=== PATIENT | male | born 1950 | race Caucasian/White ===

== ENCOUNTER 2016-11-27 07:10 | Emergency (ER) | payer BC, OTHER ==
[~2016-11-27] VITALS: Ht 162.6 cm; Wt 52.7 kg
[2016-11-27 07:13] VITALS: TEMP 36.4; Ht 162.6 cm; Wt 52.7 kg
--- NOTE | 2016-11-27 07:51 | DIAGNOSTIC IMAGING REPORT ---
LEFT HAND MIN 3 VIEWS ROUTINE CLINICAL HISTORY: Left hand pain. Trauma. COMPARISON: None. DISCUSSION: No acute fractures are visualized. There are advanced osteoarthritic changes the level the first carpal metacarpal joint. There is joint space narrowing at the level the second metacarpal phalangeal joint. There are mild osteoarthritic changes involving the proximal distal interphalangeal joints. The bones are mildly osteopenic. IMPRESSION: 1. No acute fractures or dislocations identified 2. Advanced osteoarthritic changes at the level of the first carpometacarpal joint Electronically signed by: Fracisco Castillo M.D. 11/27/2016 7:49 AM Dictated Date/Time: 11/27/2016 7:48 AM
--- NOTE | 2016-11-27 08:03 | EMERGENCY ROOM VISIT NOTE ---
History First contact with patient: 07:28 Chief Complaint: HAND PAIN/INJURY Stated Complaint: FELL AND HURT LEFT HAND History of Present Illness The patient is a 66 year old male who presents to the Emergency Room with complaints of left hand pain after tripping and falling this morning while walking down his sidewalk. The patient reports tripping on a step and falling backward, landing on his left hand that was behind his back when he attempted to catch his fall. The patient denies any pain extending into the forearm or elbow. He denies any paresthesias or numbness of the left hand. He denies any prior history of left hand fractures, and rates his discomfort a 6 out of 10 on my exam. The patient is [id number]. Review of Systems 10 system review was performed and was negative except for pertinent positives and negatives as indicated in history of present illness Past Medical/Surgical History Medical Problems: (1) Tobacco Use Disorder Surgical Problems: (1) No history of previous surgery Family History No significant family history Social History Smoking Status: Current Every Day Smoker Alcohol Use: none Marital Status: Occupation Status: employed Current/Historical Medications No Active Prescriptions or Reported Meds Allergies Coded Allergies: No Known Allergies (Unverified , 11/27/16) Physical Exam Vital Signs Date Time Temp Pulse Resp B/P Pulse Ox O2 Delivery O2 Flow Rate FiO2 11/27/16 07:13 36.4 67 17 140/86 97 Room Air Physical Exam CONSTITUTIONAL: Healthy and well nourished. Alert and oriented X 3 with positive affect. She does not appear in any acute distress. HEENT: Normocephalic, atraumatic. Pupils equal, round and reactive. NECK: Full active range of motion without discomfort. RESPIRATORY: Clear to auscultation bilaterally with no wheezing, crackles, rhonchi or stridor. CARDIOVASCULAR: Regular rate and rhythm with no murmurs, rubs or gallops. MUSCULOSKELETAL: Examination shows notable edema of the left hand. He has tenderness to palpation through the base of the thumb and first metacarpal region. Negative anatomic snuffbox tenderness. No significant tenderness to palpation over the wrist or ulnar aspect of the hand. Capillary refill is less than 2 seconds. The patient is able to flex and extend the fingers without significant discomfort. INTEGUMENTARY: No rash or other significant dermatologic conditions noted. NEUROLOGIC: Left hand and fingers are sensory intact. Medical Decision & Procedures ER Provider Diagnostic Interpretation: My interpretation of left hand x-rays does not show any obvious fractures or dislocations. Significant degenerative changes are noted. Radiologist report is as follows: LEFT HAND MIN 3 VIEWS ROUTINE CLINICAL HISTORY: Left hand pain. Trauma. COMPARISON: None. DISCUSSION: No acute fractures are visualized. There are advanced osteoarthritic changes the level the first carpal metacarpal joint. There is joint space narrowing at the level the second metacarpal phalangeal joint. There are mild osteoarthritic changes involving the proximal distal interphalangeal joints. The bones are mildly osteopenic. IMPRESSION: 1. No acute fractures or dislocations identified 2. Advanced osteoarthritic changes at the level of the first carpometacarpal joint ED Course Patient history and physical exam were performed. Nurse's notes were reviewed. The patient refused any analgesics. X-rays of the left hand were normal except for degenerative changes. An ice pack was applied. The patient was encouraged to perform range of motion exercises to prevent stiffness. He was encouraged to alternate ibuprofen and Tylenol as needed for pain. He was instructed to follow-up with orthopedics if symptoms are not improving within the next 5-7 days. The patient was happy with plan of care, voice understanding of all discharge instructions, and rated his pain a 4 out of 10 at the time of discharge. The patient was also seen and examined by Dr. Parker, ED attending physician, who agrees with workup and plan of care. Medical Decision Impression Primary Impression: Contusion of left hand Additional Impression: Fall from slip, trip, or stumble Departure Information Prescriptions No Active Prescriptions or Reported Meds Referrals No Doctor, Assigned (PCP) Patient Instructions My [facility] Problem Qualifiers Primary Impression: Contusion of left hand Encounter type: initial encounter Qualified Codes: S60.222A - Contusion of left hand, initial encounter Additional Impression: Fall from slip, trip, or stumble Encounter type: initial encounter Qualified Codes: W01.0XXA - Fall on same level from slipping, tripping and stumbling without subsequent striking against object, initial encounter
[2016-11-27 08:07] VITALS: BP 123/77; PULSE 77; O2SAT 99
--- NOTE | 2016-11-27 08:15 | EMERGENCY ROOM VISIT NOTE ---
ED Visit Note First contact with patient: 07:28 I saw this patient in conjunction with Azael Blair PA-C. I agree with his decision-making and treatment plan.
== END 2016-11-27 08:08 | disposition home or self-care (01) ==
LOC: C.EDB 07:10
DX: S60.222A Contusion of left hand, initial encounter (principal); M19.042 Primary osteoarthritis, left hand; F17.200 Nicotine dependence, unspecified, uncomplicated; W01.0XXA Fall on same level from slipping, tripping and stumbling without subsequent striking against object, initial encounter; Y93.01 Activity, walking, marching and hiking; Y92.480 Sidewalk as the place of occurrence of the external cause; Y99.8 Other external cause status

== ENCOUNTER 2017-05-01 08:34 | Emergency (ER) | payer OTHER ==
[~2017-05-01] VITALS: Ht 165.1 cm; Wt 48.2 kg
[2017-05-01 08:39] VITALS: TEMP 36.8; Ht 165.1 cm; Wt 48.2 kg
[2017-05-01] MEDS ORDERED: SODIUM CHLORIDE 0.9% 1000ML 1,000 ML IV STA (09:01)
[2017-05-01] MEDS ORDERED: MECLIZINE HCL 25 MG TAB PO STA (09:01)
[2017-05-01] MEDS ORDERED: SODIUM CHLORIDE 0.9% 1000ML 1,000 ML IV ONE (09:01)
--- NOTE | 2017-05-01 09:04 | EMERGENCY ROOM VISIT NOTE ---
History Report prepared by Kirill: Claritza Bradford Under the Supervision of: Dr. Azael Maradiaga M.D. First contact with patient: 08:55 Chief Complaint: DIZZY Stated Complaint: DIZZY/NAUSEA Nursing Triage Summary: Pt arrives BLS from work Pt reports he was sitting in his car, getting ready to go in to work when he became dizzy, nauseous, and weak. Pt went in to work and staff report pt was very pale On arrival, pt unable to keep eyes open to have conversation, but does awaken to verbal stimuli. Pt reports he feels tired. Pt's speech slurred but patient reports "this is normal for me" History of Present Illness The patient is a 67 year old male who presents to the Emergency Room with complaints of constant dizziness beginning this morning. The patient states that he woke up this morning and was feeling dizzy, nauseous, and weak. He reports that it feels like the room is spinning and he may pass out. He notes that movement worsens his dizziness and rest improves it. The patient denies any chest pain, shortness of breath, numbness, new slurred speech, ear pain, and ear ringing. He notes that he is not on any blood thinners and does not have a history of thyroid problems. He reports that he has a history of vertigo. Source of History: patient Onset: this morning Position: other (global) Quality: other (room spinning) Timing: constant Modifying Factors (Worsening): movement Modifying Factors (Relieving): rest Associated Symptoms: + nausea, + weakness, No chest pain, No SOB, No numbness Note: The patient denies any new slurred speech, ear pain, and ear ringing Review of Systems See HPI for pertinent positives & negatives. A total of 10 systems reviewed and were otherwise negative. Past Medical & Surgical Medical Problems: (1) Tobacco Use Disorder Surgical Problems: (1) No history of previous surgery Old medical records were reviewed. Nurse's notes were reviewed and I agree with. Family History No significant family history Social History Smoking Status: Current Every Day Smoker Alcohol Use: none Marital Status: Occupation Status: employed Current/Historical Medications Scheduled PRN Meclizine Hcl (Meclizine Hcl), 1 TAB PO TID PRN for Dizziness or Vertigo Allergies Coded Allergies: No Known Allergies (Unverified , 11/27/16) Physical Exam Vital Signs Date Time Temp Pulse Resp B/P (MAP) Pulse Ox O2 Delivery O2 Flow Rate FiO2 05/01/17 12:05 62 17 103/61 96 05/01/17 11:57 62 05/01/17 11:34 56 17 103/61 96 05/01/17 09:49 58 17 107/65 98 Room Air 05/01/17 08:39 36.8 57 14 131/66 93 Room Air 05/01/17 08:38 57 Physical Exam General: Well developed well nourished in no acute distress, breathing comfortably on room air. Normal speech. Non ill appearing older male. HEENT: Normal cephalic atraumatic. Pupils are equal round and reactive to light. Extraocular movements are intact. No nystagmus. Oropharynx is pink with moist mucous membranes. No swelling of the mouth lips or tongue. Neck: Supple with a midline trachea. No meningeal signs or stiffness, no JVD or bruits. No Stridor. Chest: Clear to auscultation bilaterally. No wheezes or rhonchi. No increased work of breathing. Heart: regular rate and rhythm. Abdomen: Soft nontender, nondistended without rebound guarding or rigidity. Extremities: No cyanosis clubbing or edema. No calf tenderness or assymetry Spine/Back. Non tender to palpation. No CVA tenderness Skin: Good turgor without rashes. Neurologic exam: Cranial nerves two through 12 are intact. Motor and sensation are intact and symmetrical throughout. Finger to nose intact, no trauma. No tremor. No pronator drift. Medical Decision & Procedures ER Provider Diagnostic Interpretation: Radiology results as stated below per my review and radiologist interpretation: CT HEAD WITHOUT CONTRAST (CT) FINDINGS: No intra or extra-axial mass lesions are visualized. There is no CT evidence of acute cortical infarction. There is no evidence of midline shift. There is no acute hemorrhage. No calvarial fractures are visualized. There is cerebellar atrophy. There is no evidence of pathologic ventricular dilatation. There is complete opacification of the right maxillary sinus. There is mild mucosal disease within the ethmoid sinuses. There is opacification of the right frontal sinus. IMPRESSION: 1. No acute intracranial findings 2. Cerebellar atrophy 3. Paranasal sinus disease Electronically signed by: Fracisco Castillo M.D. 05/01/2017 9:27 AM Dictated Date/Time: 05/01/2017 9:25 AM CHEST ONE VIEW PORTABLE FINDINGS: The lungs are clear. Cardiac silhouette is normal in size. No pleural effusions. No pneumothorax. Nodular density within the left lateral lung base may represent an overlapping nipple shadow or old, healed rib fracture. IMPRESSION: No acute process. Electronically signed by: Erick Louis M.D. 05/01/2017 9:49 AM Dictated Date/Time: 05/01/2017 9:48 AM Laboratory Results 05/01/17 08:50 Red Blood Count 4.31, Mean Corpuscular Volume 93.5, Mean Corpuscular Hemoglobin 32.3, Mean Corpuscular Hemoglobin Concent 34.5, Mean Platelet Volume 9.8, Neutrophils (%) (Auto) 68.2, Lymphocytes (%) (Auto) 21.4, Monocytes (%) (Auto) 6.6, Eosinophils (%) (Auto) 3.0, Basophils (%) (Auto) 0.5, Neutrophils # (Auto) 5.29, Lymphocytes # (Auto) 1.66, Monocytes # (Auto) 0.51, Eosinophils # (Auto) 0.23, Basophils # (Auto) 0.04 05/01/17 08:50 Test 05/01/17 08:50 05/01/17 09:05 White Blood Count 7.75 K/uL (4.8-10.8) Red Blood Count 4.31 M/uL (4.7-6.1) Hemoglobin 13.9 g/dL (14.0-18.0) Hematocrit 40.3 % (42-52) Mean Corpuscular Volume 93.5 fL (80-100) Mean Corpuscular Hemoglobin 32.3 pg (25-34) Mean Corpuscular Hemoglobin Concent 34.5 g/dl (32-36) Platelet Count 189 K/uL (130-400) Mean Platelet Volume 9.8 fL (7.4-10.4) Neutrophils (%) (Auto) 68.2 % Lymphocytes (%) (Auto) 21.4 % Monocytes (%) (Auto) 6.6 % Eosinophils (%) (Auto) 3.0 % Basophils (%) (Auto) 0.5 % Neutrophils # (Auto) 5.29 K/uL (1.4-6.5) Lymphocytes # (Auto) 1.66 K/uL (1.2-3.4) Monocytes # (Auto) 0.51 K/uL (0.11-0.59) Eosinophils # (Auto) 0.23 K/uL (0-0.5) Basophils # (Auto) 0.04 K/uL (0-0.2) RDW Standard Deviation 47.2 fL (36.4-46.3) RDW Coefficient of Variation 13.7 % (11.5-14.5) Immature Granulocyte % (Auto) 0.3 % Immature Granulocyte # (Auto) 0.02 K/uL (0.00-0.02) Anion Gap 10.0 mmol/L (3-11) Est Creatinine Clear Calc Drug Dose 65.2 ml/min Estimated GFR () 110.0 Estimated GFR (Non- 94.9 BUN/Creatinine Ratio 23.5 (10-20) Calcium Level 8.6 mg/dl (8.5-10.1) Total Bilirubin 0.3 mg/dl (0.2-1) Direct Bilirubin 0.1 mg/dl (0-0.2) Aspartate Amino Transf (AST/SGOT) 14 U/L (15-37) Alanine Aminotransferase (ALT/SGPT) 18 U/L (12-78) Alkaline Phosphatase 49 U/L (45-117) Total Protein 6.7 gm/dl (6.4-8.2) Albumin 3.7 gm/dl (3.4-5.0) Lipase 120 U/L (73-393) Thyroid Stimulating Hormone (TSH) 0.753 uIu/ml (0.300-4.500) Bedside Troponin I < 0.030 ng/ml (0-0.045) Laboratory studies as stated above per my review. Medications Administered Medications (Trade) Dose Ordered Sig/Harjeet Route Start Time Stop Time Status Last Admin Dose Admin Sodium Chloride 1,000 ml @ 999 mls/hr Q1H1M STAT IV 05/01/17 09:01 05/01/17 10:01 DC 05/01/17 09:09 999 MLS/HR Sodium Chloride 1,000 ml @ 150 mls/hr Q6H40M ONCE IV 05/01/17 09:01 05/01/17 12:13 DC 05/01/17 09:47 150 MLS/HR Meclizine HCl (Antivert Tab) 25 mg NOW STAT PO 05/01/17 09:01 05/01/17 09:02 DC 05/01/17 09:09 25 MG ECG Indication: other (dizziness) Rate (beats per minute): 52 Rhythm: sinus bradycardia Findings: no acute ischemic change, no ectopy Comparison ECG Date: no prior available ED Course 0855: Past medical records reviewed. The patient was evaluated in room B11, and a complete history and physical examination were performed. 0901: Antivert Tab 25mg PO, Sodium Chloride 1000 ml @ 150 mls/hr IV, Sodium Chloride 1000 ml @ 999 mls/hr IV. 1102: I reevaluated the patient. He is resting comfortably. 1151: I reevaluated the patient and he is feeling better. 1158: Upon reevaluation, the patient is doing well. I discussed the results and treatment plan with the patient. He verbalized agreement of the treatment plan. The patient will be evaluated for further management. Medical Decision Differential diagnosis includes vertigo, CVA, arrhythmia, acute coronary syndrome, electrolyte or metabolic abnormality. Blood pressure Screening: Patient was found to have normal blood pressure on screening and does not require follow-up. Medication Reconciliation: I attest that I have personally reviewed the patient' s current medication list. This patient comes in as described above. He was placed in room B 11. He is here for treatment and evaluation of dizziness. It is worse with movement. He looks well on exam. He has a normal neurologic exam. He has normal finger to nose. He has no chest pain or shortness of breath. He was placed on quality assurance monitor chassis EKG shows no evidence to suggest acute coronary syndrome or significant arrhythmia. CAT scan of his head was unremarkable. He was given meclizine and seems to be feeling better he was able ambulate and wants to go home mostly this is a peripheral vertigo he was given a prescription for meclizine is definitely worse with movement. He will be discharged home and was encouraged to return if worsening of symptoms, numbness or weakness, chest pain, shortness of breath, any new problems or concerns. Impression Primary Impression: Vertigo Scribe Attestation The scribe's documentation has been prepared under my direction and personally reviewed by me in its entirety. I confirm that the note above accurately reflects all work, treatment, procedures, and medical decision making performed by me. Departure Information Dispostion Home / Self-Care Prescriptions Meclizine Hcl (MECLIZINE HCL) 25 Mg Tab 1 TAB PO TID Y for Dizziness or Vertigo for 3 Days, #9 TAB Prov: Azael Maradiaga M.D. 05/01/17 Referrals No Doctor, Assigned (PCP) Forms HOME CARE DOCUMENTATION FORM, IMPORTANT VISIT INFORMATION Patient Instructions My [facility] Additional Instructions Rest. Drink plenty of fluids. Be careful getting up and down. For dizziness, may use meclizine 25 mg every 8 hours if needed Meclizine may make you drowsy and do not take before drinking, driving, working Return if: Worsening symptoms, fever or chills, shortness of breath, any new problems or concerns.
[2017-05-01 09:14] LABS: BASO % 0.5 %; BASO ABS # 0.04 K/uL (0-0.2); COMPLETE YES; HEMATOCRIT 40.3 % (42-52); IG% 0.3 %; LYMPH % 21.4 %; LYMPH ABS # 1.66 K/uL (1.2-3.4); MEAN CELL VOLUME 93.5 fL (80-100); MEAN CORPUSCULAR HEMOGLOBIN 32.3 pg (25-34); MEAN CORPUSCULAR HGB CONC 34.5 g/dl (32-36); MEAN PLATELET VOLUME 9.8 fL (7.4-10.4); MONO % 6.6 %; NEUT % 68.2 %; PLATELET COUNT 189 K/uL (130-400); RED BLOOD COUNT 4.31 M/uL (4.7-6.1); WHITE BLOOD COUNT 7.75 K/uL (4.8-10.8)
[2017-05-01 09:19] LABS: BUN/CREATININE RATIO 23.5 (10-20); CALCIUM 8.6 mg/dl (8.5-10.1); CREATININE 0.75 mg/dl (0.60-1.40); POTASSIUM 3.6 mmol/L (3.5-5.1)
--- NOTE | 2017-05-01 09:28 | DIAGNOSTIC IMAGING REPORT ---
CT HEAD WITHOUT CONTRAST (CT) CLINICAL HISTORY: dizziness NAUSEA COMPARISON STUDY: No previous studies for comparison. TECHNIQUE: Axial CT of the brain is performed from the vertex to the skull base. IV contrast was not administered for this examination. CT DOSE: 614.27 mGy.cm FINDINGS: No intra or extra-axial mass lesions are visualized. There is no CT evidence of acute cortical infarction. There is no evidence of midline shift. There is no acute hemorrhage. No calvarial fractures are visualized. There is cerebellar atrophy. There is no evidence of pathologic ventricular dilatation. There is complete opacification of the right maxillary sinus. There is mild mucosal disease within the ethmoid sinuses. There is opacification of the right frontal sinus. IMPRESSION: 1. No acute intracranial findings 2. Cerebellar atrophy 3. Paranasal sinus disease Electronically signed by: Fracisco Castillo M.D. 05/01/2017 9:27 AM Dictated Date/Time: 05/01/2017 9:25 AM
[2017-05-01 09:30] LABS: THYROID STIMULATING HORMONE 0.753 uIu/ml (0.300-4.500)
--- NOTE | 2017-05-01 09:50 | DIAGNOSTIC IMAGING REPORT ---
CHEST ONE VIEW PORTABLE HISTORY: Atypical CHEST PAIN COMPARISON: Chest 11/10/2014. FINDINGS: The lungs are clear. Cardiac silhouette is normal in size. No pleural effusions. No pneumothorax. Nodular density within the left lateral lung base may represent an overlapping nipple shadow or old, healed rib fracture. IMPRESSION: No acute process. Electronically signed by: Erick Louis M.D. 05/01/2017 9:49 AM Dictated Date/Time: 05/01/2017 9:48 AM
[2017-05-01] MEDS ORDERED: MECL1TAB42 PO (11:53)
[2017-05-01 12:05] VITALS: BP 103/61; PULSE 62; O2SAT 96
== END 2017-05-01 12:10 | disposition home or self-care (01) ==
LOC: EDBD 08:34 → C.EDB 08:35
DX: R42 Dizziness and giddiness (principal); F17.210 Nicotine dependence, cigarettes, uncomplicated

== ENCOUNTER 2017-05-24 09:29 | Emergency (ER) | payer OTHER ==
[~2017-05-24] VITALS: Ht 162.6 cm; Wt 52.0 kg
[2017-05-24 09:33] VITALS: TEMP 36.3; Ht 162.6 cm; Wt 52.0 kg
[2017-05-24] MEDS ORDERED: MECLIZINE HCL 25 MG TAB PO STA (09:53)
--- NOTE | 2017-05-24 10:12 | DIAGNOSTIC IMAGING REPORT ---
CHEST ONE VIEW PORTABLE CLINICAL HISTORY: eval for pnea chest pain. Dyspnea. COMPARISON STUDY: 05/01/2017 FINDINGS: The bones soft tissues and hemidiaphragms are normal. The cardiomediastinal silhouette is normal. The lungs are clear. The pulmonary vasculature is normal. IMPRESSION: Negative chest. The above report was generated using voice recognition software. It may contain grammatical, syntax or spelling errors. Electronically signed by: Eric Bergeron M.D. 05/24/2017 10:11 AM Dictated Date/Time: 05/24/2017 10:11 AM
[2017-05-24 10:15] LABS: BASO % 0.2 %; BASO ABS # 0.02 K/uL (0-0.2); COMPLETE YES; EOS % 0.1 %; HEMATOCRIT 39.8 % (42-52); IG% 0.2 %; LYMPH % 14.2 %; LYMPH ABS # 1.15 K/uL (1.2-3.4); MEAN CELL VOLUME 91.9 fL (80-100); MEAN CORPUSCULAR HEMOGLOBIN 32.3 pg (25-34); MEAN CORPUSCULAR HGB CONC 35.2 g/dl (32-36); MEAN PLATELET VOLUME 9.5 fL (7.4-10.4); MONO % 8.3 %; PLATELET COUNT 146 K/uL (130-400); RED BLOOD COUNT 4.33 M/uL (4.7-6.1); WHITE BLOOD COUNT 8.11 K/uL (4.8-10.8)
[2017-05-24] MEDS ORDERED: AMOX875T PO (10:27)
[2017-05-24] MEDS ORDERED: SODIUM CHLORIDE 0.9% 500ML 500 ML IV STA (10:27)
[2017-05-24 10:38] LABS: BUN/CREATININE RATIO 24.5 (10-20); CREATININE 0.73 mg/dl (0.60-1.40)
[2017-05-24 10:48] LABS: THYROID STIMULATING HORMONE 0.69 uIu/ml (0.300-4.500)
[2017-05-24] MEDS ORDERED: GADAVIST IV PRN (12:30)
[2017-05-24 12:31] LABS: URINE APPEARANCE CLEAR (CLEAR); URINE BILIRUBIN NEG (NEG); URINE COLOR YELLOW; URINE EPITHELIAL CELL AUTO 0-5 /lpf (0-5); URINE NITRITE NEG (NEG); URINE PH 6.5 (4.5-7.5); UROBILINOGEN NEG (NEG)
[2017-05-24 12:34] LABS: MANUAL MICROSCOPIC REQUIRED? NO; REVIEW REQ? NO
--- NOTE | 2017-05-24 12:54 | DIAGNOSTIC IMAGING REPORT ---
MRA HEAD WITHOUT CONTRAST HISTORY: Mental status change eval for VBI TECHNIQUE: 3-D [id number] MRA of the brain was performed without contrast. COMPARISON STUDY: None. FINDINGS: Visualized intracranial internal carotid arteries, distal vertebral arteries, and basilar artery are widely patent. There is no significant stenosis, occlusion, or aneurysm seen within the bilateral ACAs, MCAs, or booth operator. IMPRESSION: No significant stenosis, occlusion, or aneurysm within the [place] of Wu. Normal vertebral basilar system The above report was generated using voice recognition software. It may contain grammatical, syntax or spelling errors. Electronically signed by: Eric Bergeron M.D. 05/24/2017 12:53 PM Dictated Date/Time: 05/24/2017 12:52 PM
--- NOTE | 2017-05-24 13:34 | DIAGNOSTIC IMAGING REPORT ---
BRAIN COMBO CLINICAL HISTORY: eval for stroke COMPARISON STUDY: No previous studies for comparison. TECHNIQUE: Utilizing a 1.5 Jada magnet and dedicated coil, multiplanar, multiecho imaging of the brain was performed pre and postcontrast administration. IV administration of 8 mL of Gadavist contrast was uneventful. FINDINGS: Diffusion images are negative for an acute ischemic insult. There is no significant postcontrast enhancement. Ventricular system is midline. Sella and parasellar regions are unremarkable. IMPRESSION: Negative study The above report was generated using voice recognition software. It may contain grammatical, syntax or spelling errors. Electronically signed by: Eric Bergeron M.D. 05/24/2017 1:33 PM Dictated Date/Time: 05/24/2017 1:30 PM
--- NOTE | 2017-05-24 13:36 | DIAGNOSTIC IMAGING REPORT ---
MRA NECK COMBO HISTORY: Mental status change eval for VBI TECHNIQUE: Nnwz-yn-[id number] and gadolinium-enhanced MRA of the neck was performed both before and after the intravenous administration of contrast. All measurements were calculated based on NASCET criteria. COMPARISON STUDY: None. FINDINGS: The aortic arch and proximal great vessels are widely patent. There is no significant stenosis, occlusion, or dissection identified within the bilateral common carotid, internal carotid, or vertebral arteries. IMPRESSION: No significant stenosis, occlusion, or dissection identified within the carotid or vertebral arteries. Normal vertebral basilar system The above report was generated using voice recognition software. It may contain grammatical, syntax or spelling errors. Electronically signed by: Eric Bergeron M.D. 05/24/2017 1:34 PM Dictated Date/Time: 05/24/2017 1:33 PM
[2017-05-24] MEDS ORDERED: MECL1TAB42 PO (13:50)
[2017-05-24 14:10] VITALS: BP 104/72; PULSE 68; O2SAT 96
--- NOTE | 2017-05-24 15:13 | EMERGENCY ROOM VISIT NOTE ---
History Report prepared by Kirill: April Cole Under the Supervision of: Dr. Girish Beasley M.D. First contact with patient: 09:39 Chief Complaint: DIZZY Stated Complaint: DIZZY Nursing Triage Summary: pt to the ED with dizziness no syncope and has pain due to falls History of Present Illness The patient is a 67 year old male who presents to the Emergency Room with complaints of persistent dizziness for the past three months. He currently rates his discomfort as an 8/10 in severity. The patient's daughter in law reports that the patient has been experiencing dizziness for the past several months. His daughter in law reports that the patient was seen at [facility] yesterday, and states that the patient was placed on Augmentin for a probable sinus infection. The patient's daughter in law states that the patient was also seen here one month ago and was given Meclizine, which has helped to alleviate his dizziness. She states that the patient has been falling due to the dizziness. The patient states that his symptoms are worse when he goes from lying flat to sitting up or standing up. The patient states that he has difficulty ambulating for the past three months. He denies ever having this dizziness prior to the past three months. The patient denies being on any medications and has no known active medical problems. He states that he does not have a PCP that he follows with. The patient reports a normal appetite. He denies any dysphasia, ringing in his hears, headache, chest pain, headache, vomiting, or diarrhea. The patient denies any numbness or weakness to one side of his body. Source of History: patient, family (daughter in law) Onset: past three months Position: other (global) Symptom Intensity: 8/10 Quality: other (dizziness) Timing: other (persistent) Modifying Factors (Worsening): other (going from sitting down to standing up ) Modifying Factors (Relieving): other (meclizine) Associated Symptoms: No headache, No chest pain, No SOB, No vomiting, No diarrhea, No weakness, No numbness Note: Associated Symptoms: difficulty ambulating, recent falls. Review of Systems See HPI for pertinent positives & negatives. A total of 10 systems reviewed and were otherwise negative. Past Medical & Surgical Medical Problems: (1) Tobacco Use Disorder Surgical Problems: (1) No history of previous surgery Family History No significant family history Social History Smoking Status: Current Every Day Smoker Alcohol Use: none Marital Status: Occupation Status: employed Current/Historical Medications Scheduled Amoxicillin & Pot Clavulanate (Augmentin 875-125 mg), 1 TAB PO BID Scheduled PRN Meclizine Hcl (Meclizine Hcl), 1 TAB PO TID PRN for Dizziness or Vertigo Allergies Coded Allergies: No Known Allergies (Unverified , 05/24/17) Physical Exam Vital Signs Date Time Temp Pulse Resp B/P (MAP) Pulse Ox O2 Delivery O2 Flow Rate FiO2 05/24/17 14:10 68 18 104/72 96 Room Air 05/24/17 13:25 66 18 102/79 97 Room Air 05/24/17 12:00 58 16 107/71 100 Room Air 05/24/17 10:48 60 05/24/17 10:13 64 18 128/82 97 05/24/17 10:09 58 106/62 62 127/77 72 99/67 05/24/17 09:33 36.3 71 22 104/68 94 Room Air Physical Exam Constitutional: Vital signs reviewed. Eyes: Pupils are equal round reactive to light. Conjunctiva are noninjected. ENT: Pharynx is clear without erythema or exudate. Mucous membranes are moist. Neck supple without meningeal signs. Respiratory: Clear to auscultation bilaterally. Breath sounds are equal bilaterally. Cardiovascular: Regular rate and rhythm. No rubs or gallops. GI: Soft, nondistended and nontender. Bowel sounds are present. Musculoskeletal: No peripheral edema. No lower extremity tenderness. Integumentary: No cyanosis. Neurological: The patient is awake and alert. Cranial nerves II-XII are intact. Motor is 5 out of 5 all extremities. Sensation is intact to light touch all extremities. Normal speech. No pronator drift. No limb ataxia. No dysdiadochokinesis, negative test of skew, right lateral nystagmus, positive head impulse testing, negative Romberg sign, wide based gait. Psychiatric: Normal affect. Medical Decision & Procedures ER Provider Diagnostic Interpretation: Radiology results as stated below per my review and the radiologist's interpretation: CHEST ONE VIEW PORTABLE CLINICAL HISTORY: eval for pnea chest pain. Dyspnea. COMPARISON STUDY: 05/01/2017 FINDINGS: The bones soft tissues and hemidiaphragms are normal. The cardiomediastinal silhouette is normal. The lungs are clear. The pulmonary vasculature is normal. IMPRESSION: Negative chest. The above report was generated using voice recognition software. It may contain grammatical, syntax or spelling errors. Electronically signed by: Eric Bergeron M.D. 05/24/2017 10:11 AM Dictated Date/Time: 05/24/2017 10:11 AM MRA NECK COMBO HISTORY: Mental status change eval for VBI TECHNIQUE: [id number] and gadolinium-enhanced MRA of the neck was performed both before and after the intravenous administration of contrast. All measurements were calculated based on NASCET criteria. COMPARISON STUDY: None. FINDINGS: The aortic arch and proximal great vessels are widely patent. There is no significant stenosis, occlusion, or dissection identified within the bilateral common carotid, internal carotid, or vertebral arteries. IMPRESSION: No significant stenosis, occlusion, or dissection identified within the carotid or vertebral arteries. Normal vertebral basilar system The above report was generated using voice recognition software. It may contain grammatical, syntax or spelling errors. Electronically signed by: Eric Bergeron M.D. 05/24/2017 1:34 PM Dictated Date/Time: 05/24/2017 1:33 PM MRA HEAD WITHOUT CONTRAST HISTORY: Mental status change eval for VBI TECHNIQUE: 3-D [id number] MRA of the brain was performed without contrast. COMPARISON STUDY: None. FINDINGS: Visualized intracranial internal carotid arteries, distal vertebral arteries, and basilar artery are widely patent. There is no significant stenosis, occlusion, or aneurysm seen within the bilateral ACAs, MCAs, or restaurant general manager. IMPRESSION: No significant stenosis, occlusion, or aneurysm within the [place]. Normal vertebral basilar system The above report was generated using voice recognition software. It may contain grammatical, syntax or spelling errors. Electronically signed by: Eric Bergeron M.D. 05/24/2017 12:53 PM Dictated Date/Time: 05/24/2017 12:52 PM BRAIN COMBO CLINICAL HISTORY: eval for stroke COMPARISON STUDY: No previous studies for comparison. TECHNIQUE: Utilizing a 1.5 Jada magnet and dedicated coil, multiplanar, multiecho imaging of the brain was performed pre and postcontrast administration. IV administration of 8 mL of Gadavist contrast was uneventful. FINDINGS: Diffusion images are negative for an acute ischemic insult. There is no significant postcontrast enhancement. Ventricular system is midline. Sella and parasellar regions are unremarkable. IMPRESSION: Negative study The above report was generated using voice recognition software. It may contain grammatical, syntax or spelling errors. Electronically signed by: Eric Bergeron M.D. 05/24/2017 1:33 PM Dictated Date/Time: 05/24/2017 1:30 PM Laboratory Results 05/24/17 10:00 Red Blood Count 4.33, Mean Corpuscular Volume 91.9, Mean Corpuscular Hemoglobin 32.3, Mean Corpuscular Hemoglobin Concent 35.2, Mean Platelet Volume 9.5, Neutrophils (%) (Auto) 77.0, Lymphocytes (%) (Auto) 14.2, Monocytes (%) (Auto) 8.3, Eosinophils (%) (Auto) 0.1, Basophils (%) (Auto) 0.2, Neutrophils # (Auto) 6.24, Lymphocytes # (Auto) 1.15, Monocytes # (Auto) 0.67, Eosinophils # (Auto) 0.01, Basophils # (Auto) 0.02 05/24/17 10:00 Test 05/24/17 10:00 05/24/17 12:16 White Blood Count 8.11 K/uL (4.8-10.8) Red Blood Count 4.33 M/uL (4.7-6.1) Hemoglobin 14.0 g/dL (14.0-18.0) Hematocrit 39.8 % (42-52) Mean Corpuscular Volume 91.9 fL (80-100) Mean Corpuscular Hemoglobin 32.3 pg (25-34) Mean Corpuscular Hemoglobin Concent 35.2 g/dl (32-36) Platelet Count 146 K/uL (130-400) Mean Platelet Volume 9.5 fL (7.4-10.4) Neutrophils (%) (Auto) 77.0 % Lymphocytes (%) (Auto) 14.2 % Monocytes (%) (Auto) 8.3 % Eosinophils (%) (Auto) 0.1 % Basophils (%) (Auto) 0.2 % Neutrophils # (Auto) 6.24 K/uL (1.4-6.5) Lymphocytes # (Auto) 1.15 K/uL (1.2-3.4) Monocytes # (Auto) 0.67 K/uL (0.11-0.59) Eosinophils # (Auto) 0.01 K/uL (0-0.5) Basophils # (Auto) 0.02 K/uL (0-0.2) RDW Standard Deviation 44.9 fL (36.4-46.3) RDW Coefficient of Variation 13.2 % (11.5-14.5) Immature Granulocyte % (Auto) 0.2 % Immature Granulocyte # (Auto) 0.02 K/uL (0.00-0.02) Anion Gap 7.0 mmol/L (3-11) Est Creatinine Clear Calc Drug Dose 72.2 ml/min Estimated GFR () 111.2 Estimated GFR (Non- 96.0 BUN/Creatinine Ratio 24.5 (10-20) Calcium Level 9.0 mg/dl (8.5-10.1) Total Bilirubin 0.4 mg/dl (0.2-1) Direct Bilirubin 0.1 mg/dl (0-0.2) Aspartate Amino Transf (AST/SGOT) 35 U/L (15-37) Alanine Aminotransferase (ALT/SGPT) 38 U/L (12-78) Alkaline Phosphatase 56 U/L (45-117) Total Protein 7.3 gm/dl (6.4-8.2) Albumin 3.3 gm/dl (3.4-5.0) Thyroid Stimulating Hormone (TSH) 0.690 uIu/ml (0.300-4.500) Urine Color YELLOW Urine Appearance CLEAR (CLEAR) Urine pH 6.5 (4.5-7.5) Urine Specific [place] 1.010 (1.000-1.030) Urine Protein NEG (NEG) Urine Glucose (UA) NEG (NEG) Urine Ketones NEG (NEG) Urine Occult Blood 2+ (NEG) Urine Nitrite NEG (NEG) Urine Bilirubin NEG (NEG) Urine Urobilinogen NEG (NEG) Urine Leukocyte Esterase NEG (NEG) Urine WBC (Auto) 0 /hpf (0-5) Urine RBC (Auto) 0-4 /hpf (0-4) Urine Hyaline Casts (Auto) 0 /lpf (0-5) Urine Epithelial Cells (Auto) 0-5 /lpf (0-5) Urine Bacteria (Auto) NEG (NEG) Laboratory results as reviewed by me. Medications Administered Medications (Trade) Dose Ordered Sig/Harjeet Route Start Time Stop Time Status Last Admin Dose Admin Meclizine HCl (Antivert Tab) 25 mg NOW STAT PO 05/24/17 09:53 05/24/17 09:54 DC 05/24/17 10:12 25 MG Sodium Chloride 500 ml @ 999 mls/hr Q31M STAT IV 05/24/17 10:27 05/24/17 10:57 DC 05/24/17 10:42 999 MLS/HR ECG Indication: other (dizziness) Rate (beats per minute): 63 Rhythm: normal sinus Findings: no acute ischemic change, no ectopy ED Course 0942: The patient was evaluated in room B12B. A complete history and physical exam was performed. 0953: Ordered Meclizine HCl 25 mg PO. 0959: I reevaluated the patient and informed him that he will go for an MRI. 1025: The patient has orthostatic hypotension. 1027: Sodium Chloride 500 ml @ 999 mls/hr IV. 1330: I reevaluated the patient and he states that he is feeling better. I discussed his test results with him as well as his orthostatic hypotension. I discussed the treatment plan with him and he verbalized complete understanding and agreement. He is ready to go home. 1400: I reevaluated the patient and he is doing well. He is ready for discharge. Medical Decision This is a 67-year-old male who presents with dizziness and difficulty walking. Differential diagnosis includes cerebellar infarct, intracranial hemorrhage, CVA , BPV, vertebrobasilar insufficiency, intracranial mass, metabolic derangement, labyrinthitis. I did perform a limited focused review of portions of the patient's old chart on the electronic medical record. The patient was here May 01 for dizziness. He had a CT of his head that showed no acute findings. He had cerebellar atrophy. He was improved with Meclizine. Blood Pressure Screening: Patient was found to have normal blood pressure on screening and does not require follow-up. Medication Reconciliation: I attest that I have personally reviewed the patient' s current medication list. I did evaluate the patient as noted above. The patient is presenting with a three-month history of dizziness. He is neurologically intact other than a wide -based gait. His symptoms appear peripheral but he states he has had the symptoms continually for 3 months. He does not have his own PCP. He generally gets better with meclizine and was wondering if we can give him a prescription for meclizine. IV access was established. The patient was placed on a continuous ekg monitor tech. I did order and personally review the patient's 12- lead EKG and chest x-ray as described above. I did order and review the patient 's blood work as noted in the electronic medical record. Labs are unremarkable except for sodium 134. His urinalysis is unremarkable. I did order an MRI of the brain and MRA of the head and neck. I did review the images myself as well as the radiology report as described above. There is no evidence of vertebrobasilar insufficiency or infarct. I did treat patient with meclizine. Orthostatic vital signs showed that the patient had orthostatic hypotension. He was given normal saline IV. On reassessment he is feeling much better. I did discuss the test results with him in detail as well as his diagnosis. He will follow up with a regular physician at [facility]. He was given a prescription for meclizine and discharged in good condition. Impression Primary Impression: Orthostatic hypotension Additional Impression: Vertigo Scribe Attestation The scribe's documentation has been prepared under my direct and personally reviewed by me in its entirety. I confirm that the note above accurately reflects all work, treatment, procedures, and medical decision making performed by me. Departure Information Dispostion Home / Self-Care Prescriptions Meclizine Hcl (MECLIZINE HCL) 25 Mg Tab 1 TAB PO TID Y for Dizziness or Vertigo for 10 Days, #30 TAB Prov: Girish Beasley M.D. 05/24/17 Referrals No Doctor, Assigned (PCP) Forms HOME CARE DOCUMENTATION FORM, IMPORTANT VISIT INFORMATION Patient Instructions ED Hypotension Orthostatic, ED Vertigo Unspecified, [facility] Additional Instructions You have been examined and treated today on an emergency basis only. This is not a substitute for, or an effort to provide, complete comprehensive medical care. It is impossible to recognize and treat all injuries or illnesses in a single emergency department visit. It is therefore important that you follow up closely with your physician. Call as soon as possible for an appointment. Return for worsening symptoms or if you develop fever, numbness or weakness on one side of your body, difficulties with your speech, or any other concerning symptoms. Problem Qualifiers
== END 2017-05-24 14:17 | disposition home or self-care (01) ==
LOC: C.EDB 09:30
DX: I95.1 Orthostatic hypotension (principal); R42 Dizziness and giddiness; F17.200 Nicotine dependence, unspecified, uncomplicated

== ENCOUNTER → 2017-05-28 | Outpatient (CLI) | payer OTHER ==
[~2017-05-28] MED LIST: AMOX875T PO; MECL1TAB42 PO
[2017-05-28 13:01] LABS: ALT/SGPT 30 U/L (12-78); AST/SGOT 19 U/L (15-37); BLOOD UREA NITROGEN 18 mg/dl (7-18); BUN/CREATININE RATIO 27.2 (10-20); CALCIUM 9.6 mg/dl (8.5-10.1); CARBON DIOXIDE 30 mmol/L (21-32); CHLORIDE 104 mmol/L (98-107); CREATININE 0.67 mg/dl (0.60-1.40); GLUCOSE 103 mg/dl (70-99); POTASSIUM 4.1 mmol/L (3.5-5.1); SODIUM 139 mmol/L (136-145)
[2017-05-28 13:04] LABS: ALB/GLOB RATIO 0.9 (0.9-2); ALKALINE PHOSPHATASE 57 U/L (45-117)
[2017-05-28 13:37] LABS: ESTIMATED AVERAGE GLUCOSE 126 mg/dl; HA1C FLAG Normal (Normal)
--- NOTE | 2017-06-04 10:32 | CODING QUERY MEDICAL NECESSITY ---
CQSUPPORTING DIAGNOSIS NEEDED A supporting diagnosis is required for the test/procedure performed on this patient in order for us to be reimbursed by the patient's insurance. Please provide a supporting diagnosis for the following test/procedure listed below next to the test name along with your signature. *If there is no additional diagnosis for this patient that would support the following test/procedure please document that below next to the test/procedure. Test(s)/Procedure(s) that require a supporting diagnosis: DOS 05/28/17 VITAMIN D TEST VITAMIN B12 TEST Provider Signature: Date: Thank you Naomi Jackson Health Information Management Once completed, please kindly fax back to [phone] For questions please call [phone]
== END | disposition home or self-care (01) ==
LOC: C.LABPVFM 10:23
PROVIDERS: ATTEND Nurse Practitioner
DX: R73.9 Hyperglycemia, unspecified (principal)

== ENCOUNTER → 2017-07-24 | Outpatient (CLI) | payer OTHER ==
[~2017-07-24] MED LIST changes: -MECL1TAB42 PO
--- NOTE | 2017-07-24 11:04 | DIAGNOSTIC IMAGING REPORT ---
RIGHT HIP 2 VIEWS HISTORY: Fall. RIGHT HIP PAIN Right COMPARISON: None. FINDINGS: No fracture or dislocation within the proximal right femur. Nondisplaced fractures within the right superior and inferior pubic rami. Soft tissues are unremarkable. No radiopaque foreign bodies. IMPRESSION: Nondisplaced right pubic rami fractures. Electronically signed by: Erick Louis M.D. 07/24/2017 11:03 AM Dictated Date/Time: 07/24/2017 11:02 AM
== END | disposition home or self-care (01) ==
LOC: C.RADPV 10:47
PROVIDERS: ATTEND Family Medicine
DX: M25.551 Pain in right hip (principal)

== ENCOUNTER → 2017-11-05 | Outpatient (CLI) | payer OTHER ==
--- NOTE | 2017-11-05 11:08 | DIAGNOSTIC IMAGING REPORT ---
R HIP UNILATERAL 2 VIEWS, L HIP UNILATERAL 2 VIEWS CLINICAL HISTORY: Fall. Right and left hip pain. COMPARISON STUDY: Right hip 07/24/2017. FINDINGS: Healing right pubic ring fracture. No acute fracture or dislocation within the right or left hip. The visualized left pelvic bones are intact. Soft tissues are unremarkable. IMPRESSION: 1. No acute fracture or dislocation within the right or left hip. 2. Healing right pubic ring fracture. Electronically signed by: Erick Louis M.D. 11/05/2017 11:07 AM Dictated Date/Time: 11/05/2017 11:01 AM
--- NOTE | 2017-11-05 11:21 | DIAGNOSTIC IMAGING REPORT ---
L FEMUR 2 VIEWS ROUTINE CLINICAL HISTORY: INJURY OF LEG, LEFT trauma. Pain. COMPARISON: None. DISCUSSION: The bones and joint spaces appear intact. There is no evidence of fracture, dislocation or bony disease. Mild degenerative change left hip. No evidence for acetabular protrusion. No evidence for fracture. IMPRESSION: Mild degenerative change left hip. No acute bony abnormality. The above report was generated using voice recognition software. It may contain grammatical, syntax or spelling errors. Electronically signed by: Eric Bergeron M.D. 11/05/2017 11:19 AM Dictated Date/Time: 11/05/2017 11:19 AM
--- NOTE | 2017-11-05 11:24 | DIAGNOSTIC IMAGING REPORT ---
L TIBIA/FIBULA 2 VIEWS ROUTINE CLINICAL HISTORY: Left leg injury. COMPARISON: None FINDINGS: No acute fracture of the left tibia or fibula is identified. Alignment of left knee and ankle is anatomic. Irregularity of the fibular tip is chronic. Talar dome is intact. IMPRESSION: No acute fracture of the left tibia or fibula. Electronically signed by: Hero Miller M.D. 11/05/2017 11:23 AM Dictated Date/Time: 11/05/2017 11:19 AM
== END | disposition home or self-care (01) ==
LOC: C.RADPV 10:16
PROVIDERS: ATTEND Family Medicine
DX: S89.81XA Other specified injuries of right lower leg, initial encounter (principal); S89.92XA Unspecified injury of left lower leg, initial encounter; X58.XXXA Exposure to other specified factors, initial encounter; S32.89XD Fracture of other parts of pelvis, subsequent encounter for fracture with routine healing; X58.XXXD Exposure to other specified factors, subsequent encounter

== ENCOUNTER → 2017-12-14 | Outpatient (CLI) | payer OTHER ==
[2017-12-14 12:56] LABS: ALBUMIN 3.9 gm/dl (3.4-5.0); ALT/SGPT 24 U/L (12-78); BLOOD UREA NITROGEN 27 mg/dl (7-18); CALCIUM 9.1 mg/dl (8.5-10.1); CARBON DIOXIDE 28 mmol/L (21-32); CHOLESTEROL 174 mg/dl (0-200); CREATININE 0.73 mg/dl (0.60-1.40); GLUCOSE 110 mg/dl (70-99); POTASSIUM 4.1 mmol/L (3.5-5.1); SODIUM 137 mmol/L (136-145)
[2017-12-14 12:59] LABS: ALKALINE PHOSPHATASE 56 U/L (45-117); AST/SGOT 18 U/L (15-37); LDL CHOLESTEROL CALCULATED 104 mg/dl; TOTAL PROTEIN 7.3 gm/dl (6.4-8.2)
== END | disposition home or self-care (01) ==
LOC: C.LABPVFM 12-09 10:18
PROVIDERS: ATTEND Neuromusculoskeletal Medicine & OMM
DX: Z00.00 Encounter for general adult medical examination without abnormal findings (principal); R73.9 Hyperglycemia, unspecified

== ENCOUNTER → 2017-12-17 | Outpatient (CLI) | payer OTHER ==
[2017-12-17 13:44] LABS: HEMOGLOBIN A1C 5.5 % (4.5-5.6)
== END | disposition home or self-care (01) ==
LOC: C.LABPVFM 11:23
PROVIDERS: ATTEND Nurse Practitioner Family
DX: R73.9 Hyperglycemia, unspecified (principal)

== ENCOUNTER 2021-04-02 08:26 | Observation (INO) ==
--- NOTE | 2021-03-14 09:18 | PAT Medication Instructions ---
Medication Instructions Date of Service March 14, 2021 Home Medications omega-3 fatty acids-fish oil 360 mg-1,200 mg capsule 1 cap PO QAM multivitamin 1 tab PO QAM STOP taking 2 weeks before surgery (or as soon as possible if surgery is within 2 weeks) omega-3 fatty acids-fish oil 360 mg-1,200 mg capsule 1 cap PO QAM DO NOT take the morning of surgery multivitamin 1 tab PO QAM Other Notes If you have any questions please call us at [phone] or [phone] or [phone] or [phone]
--- NOTE | 2021-03-15 09:10 | Anesthesiology Consultation ---
Date of Service March 15, 2021 Assessment & Plan (1) Encounter for pre-operative examination: COVID screening: Per assessment on 03/15: Travel screen negative, no known COVID- 19 positive contacts or current COVID-19 related symptoms. Surgeon arranging preop COVID testing (scheduled 03/27; [facility]). Awaiting results. Chart Review Chart Review: Acceptable Risk for Surgery and Patient seen in Pre Admission Testing Teaching & Discussion Pre-Anesthesia Teaching/Discussion Notes: Instructed NPO after midnight before surgery,except medications with 15 cc of water. Medication instructions pr ovided according to the PAT guidelines. History Surgery Operation Date: 04/02/21 12:30 Proposed Procedures p Left Total Knee Replacement - Romain Yepez MD Height/Weight Height: 5 ft 3 in Weight: 50.8 kg Allergies Allergy/AdvReac Type Severity Reaction Status Date / Time No Known Allergies Allergy Unknown Unverified 03/13/21 09:47 Medications Home Medications Medication Instructions Recorded Confirmed Last Taken omega-3 fatty acids-fish oil 360 1 cap PO QAM 09/14/19 03/13/21 Unknown mg-1,200 mg capsule multivitamin 1 tab PO QAM 03/13/21 03/13/21 Unknown Past Medical History Medical History Left knee DJD Orthostatic hypotension Remote hx per records, stopped midodrine completely without return of symptoms/no recent issues Exercise / Class Metabolic Activity II 4-5 Yardwork/Stairs/Walk up hill (one flight of stairs (no chest pain, no sob)) Past Family History Family History Other No family history of adverse response to anesthesia Denies family history of Ovarian cancer Prostate cancer Diabetes Coronary heart disease Myocardial infarction Breast cancer Colorectal cancer Past Surgical History Surgical History No history of previous surgery Past Anesthesia History No Hx of Anesthesia Complications and No Family Hx of Anesthesia Complications History of PONV No Hx of PONV and No Hx of Motion Sickness Social History Smoking Status: Current every day smoker tobacco type: cigars Smoking cigarettes per day: 10 "little" cigars/day (tobacco use x 50 years) Do You Dip or Chew Tobacco: No Hx Alcohol Use: No Hx Substance Use: No Review of Systems Patient denies chest pain, shortness of breath, dyspnea on exertion, fever, chills, cough, wheezing, palpitations. Physical Exam Vital Signs VITALS BP 122/77 P 86 TEMP 98.2 SP02 96%RA RESP 16 PHYSICAL Full cervical extension range of motion. Full TMJ range of motion. TMD 3.5 finger breaths Mallampati Score 3 Dentition: partial upper Lungs: clear throughout to auscultation, prolonged inspiratory phase Cardiac: regular rate and rhythm, no murmurs noted Spine: normal Carotid arteries: negative bruit Extremities: no edema Testing Laboratory Results 03/15/21 09:34 03/15/21 09:34 PT 9.7 Seconds (9.0-12.0) 03/15/21 09:34 INR 1.0 (0.9-1.1) 03/15/21 09:34 APTT 26.5 Seconds (21.0-31.0) 03/15/21 09:34 Blood Type A Positive 03/15/21 09:34 Antibody Screen NEGATIVE 03/15/21 09:34 Electrocardiogram Date: 03/15/21 Findings: + NSR @ (75) Chest X-Ray Date: 03/15/21 FINDINGS: Lung volumes are at the upper limits of normal. Lungs are clear. There is no pneumothorax or pleural effusion. Cardiac size is normal. Mediastinal contours are normal. There is no evidence for pulmonary edema. Patient is rotated. A few old right rib fractures are present. IMPRESSION: No acute cardiopulmonary findings.
--- NOTE | 2021-03-15 09:46 | Electrocardiogram Report ---
Test Reason : Blood Pressure : / mmHG Vent. Rate : 075 BPM Atrial Rate : 075 BPM P-R Int : 170 ms QRS Dur : 092 ms QT Int : 382 ms P-R-T Axes : 088 071 080 degrees QTc Int : 426 ms Normal sinus rhythm Normal ECG When compared with ECG of 24-MAY-2017 09:43, No significant change was found Confirmed by Cholo Estrada ([id number]) on 03/15/2021 9:45:45 AM Referred By: Romain Yepez Confirmed By:Cholo Estrada
--- NOTE | 2021-03-15 10:23 | XRay Report ---
XR chest Pre-admission PA/Lat CLINICAL HISTORY: Preoperative evaluation. COMPARISON STUDY: Chest radiograph June 21, 2019. FINDINGS: Lung volumes are at the upper limits of normal. Lungs are clear. There is no pneumothorax o r pleural effusion. Cardiac size is normal. Mediastinal contours are normal. There is no evidence for pulmonary edema. Patient is rotated. A few old right rib fractures are present. IMPRESSION: No acute cardiopulmonary findings. ACT 112: Negative or not required by law. Electronically signed by: Hero Miller M.D. 03/15/2021 10:22 AM
[2021-03-15 11:03] LABS: Basophils # (auto) 0.01 K/uL (0-0.2); Basophils % (auto) 0.1 %; Eosinophils # (auto) 0.15 K/uL (0-0.5); Eosinophils % (auto) 2.1 %; Hematocrit (blood only) 39.6 % (42-52); Hemoglobin 13.8 g/dL (14.0-18.0); Immature Granulocytes # (auto) 0.01 K/uL (0.00-0.02); Immature Granulocytes % (auto) 0.1 %; Lymphocytes # (auto) 1.47 K/uL (1.2-3.4); Lymphocytes % (auto) 20.4 %; Mean Corpuscular Hemoglobin 33.1 pg (25-34); Mean Corpuscular Hgb Conc 34.8 g/dL (32-36); Mean Platelet Volume 9.6 fL (7.4-10.4); Monocytes # (auto) 0.66 K/uL (0.11-0.59); Monocytes % (auto) 9.2 %; Neutrophils # (auto) 4.89 K/uL (1.4-6.5); Neutrophils % (auto) 68.1 %; Platelet Count 229 K/uL (130-400); RDW Coefficient of Variation 14.3 % (11.5-14.5); RDW Standard Deviation 49.9 fL (36.4-46.3); Red Blood Count 4.17 M/uL (4.7-6.1); White Blood Count 7.19 K/uL (4.8-10.8)
[2021-03-15 11:06] LABS: BUN Creatinine Ratio 19.7 (10-20); Calcium 9.9 mg/dl (8.5-10.1); Creatinine Clr Calc Pharmacy 61.6 ml/min; Est GFR (African American) 104.7; Est GFR (Non-African American) 90.3
[2021-03-15 11:11] LABS: Partial Thromboplastin Time 26.5 Seconds (21.0-31.0); Prothrombin Time 9.7 Seconds (9.0-12.0)
[~2021-04-02 08:26] MED LIST changes: +ACETAMINOPHEN 500 MG TAB PO SCH; -AMOX875T PO; +BUPIVACAINE 0.25% 30 ML VIAL ONE; +BUPIVACAINE 0.5 % 5 MG/1 ML PF 10ML VIAL ONE; +BUPIVACAINE LIPOSOME/PF 266 MG, BUPIVACAINE/EPINEPHRINE 50 ML, SODIUM CHLORIDE 0.9% 30 ... INFIL SCH; +FAMOTIDINE 20 MG TAB PO SCH; +GABAPENTIN 300 MG CAP PO SCH; +LR 500ML BOLUS, THEN 15ML/HR IV SCH; +LR 60ML/HR IV SCH; +TRANEXAMIC ACID 1,000 MG **IV Intra-op IV SCH; +ceFAZolin 2000MG 2,000 MG/15 ML SYR IV SCH
--- NOTE | 2021-04-02 08:55 | History & Physical Bridge Note ---
Date of Service April 02, 2021 History & Physical Bridge Note I have examined the patient, reviewed the History & Physical and in the interval since the performance of the History & Physical I have noted the following changes of clinical significance: no changes noted
[2021-04-02] MEDS ORDERED: MIDAZOLAM HCL 1 MG/ML 2ML VIAL ONE (09:15)
[2021-04-02] MEDS ORDERED: PROPOFOL IV EMULSION 10 MG/ML 20 ML VIAL IV ONE (09:15)
[2021-04-02] MEDS ORDERED: fentaNYL citrate 100 MCG/2 ML VIAL ONE (09:15)
[2021-04-02] MEDS ORDERED: ONDANSETRON INJ 2 MG/ML 2 ML VIAL IV PRN ×2 (10:11→13:59)
[2021-04-02] MEDS ORDERED: fentaNYL citrate 100 MCG/2 ML VIAL IV PRN (10:11)
[2021-04-02] MEDS ORDERED: ATROPINE SULFATE 0.1 MG/ML 10ML SYR IV PRN (10:11)
[2021-04-02] MEDS ORDERED: ePHEDrine sulfate 50 MG/ML AMP IV PRN (10:11)
[2021-04-02] MEDS ORDERED: BUPIVACAINE LIPOSOME 1.3% 266 MG/20 ML VIAL ONE (10:48)
[2021-04-02] MEDS ORDERED: SODIUM CHLORIDE 0.9% PF 50 ML VIAL ONE (10:48)
[2021-04-02] MEDS ORDERED: BUPIVACAINE 0.25% 30 ML VIAL ONE (10:48)
[2021-04-02] MEDS ORDERED: EPINEPHrine INJ 1 MG/ML AMP ONE (10:49)
[2021-04-02] MEDS ORDERED: PHENYLEPHRINE 100MCG/ML 5ML SYR ONE (11:36)
--- NOTE | 2021-04-02 12:41 | Post Operative Brief Note ---
PG Immediate Post Op with CF Date of Surgery April 02, 2021 Pre & Post Diagnosis Operation Date: 04/02/21 10:40 Pre-Op Diagnosis: Left Knee Advanced Degenerative Joint Disease Post-Op Diagnosis: Left Knee Advanced Degenerative Joint Disease I identified the patient and participated in the time-out.: Yes Procedure Operation Date: 04/02/21 10:40 Actual Procedures p Left Total Knee Arthroplasty(Left) - Romain Yepez MD Surgeon Romain Yepez MD [employer] ZACHERY Cohen Estimated Blood Loss 50 Findings Consistent with Post-Op Diagnosis Fluids 800 cc Specimens Specimen Description: Permanent Solution: A.) Left Knee Bone and Tissue Drains Stout Catheter (16 [place] 10ml balloon; inserted by Venu Cohen PA-C without difficulty; urine output monitored throughout entire case by anesthesia staff) Anesthesia Type Spinal MAC Complications none Disposition Accompanied Patient To Recovery: No Disposition: Recovery Room
--- NOTE | 2021-04-02 13:03 | Anesthesiology Progress Note ---
Date of Service April 02, 2021 Anesthesia Post Procedure Vital Signs Vital Signs: Temp Pulse Pulse Resp BP BP Pulse Ox 04/02/21 12:55 76 14 111/65 95 04/02/21 12:46 36.7 C 89 14 109/64 96 04/02/21 08:52 36.3 C L 76 20 135/74 96 Transfer of Care Handoff Completed per policy Notes Mental Status: alert / awake / arousable and participated in evaluation Nausea / Vomiting: adequately controlled Pain: adequately controlled Airway Patency, RR, SpO2: stable & adequate BP & HR: stable & adequate Hydration State: stable & adequate Neuraxial Anesthesia: was administered and sensory block is resolving Anesthetic Complications: no major complications apparent and Pt Satisfied with anesthetic care
--- NOTE | 2021-04-02 13:41 | XRay Report ---
LEFT KNEE 2 VIEWS History: Left total knee arthroplasty. Degenerative arthritis. Postop. FINDINGS: The patient is status post a left total knee arthroplasty. The hardware is intact. No fract ure or dislocation. Skin quintin are in place. IMPRESSION: Left total knee arthroplasty. No evidence for hardware complication. ACT 112: Negative or not required by law. Electronically signed by: Erick Louis M.D. 04/02/2021 1:49 PM
[2021-04-02] MEDS ORDERED: MAGNESIUM HYDROXIDE SUSP 30 ML UDC PO PRN (13:59)
[2021-04-02] MEDS ORDERED: ALUMINUM/MAGNESIUM SUSP 30 ML UDC PO PRN (13:59)
[2021-04-02] MEDS ORDERED: bisacodyL 10 MG SUPP PR PRN (13:59)
[2021-04-02] MEDS ORDERED: METOCLOPRAMIDE HCL INJ 5 MG/ML 2 ML VIAL IV PRN (13:59)
[2021-04-02] MEDS ORDERED: TAMSULOSIN HCL 0.4 MG CAP PO PRN (13:59)
[2021-04-02] MEDS ORDERED: NALOXONE HCL 0.4 MG/1 ML VIAL/CARP IV PRN (13:59)
[2021-04-02] MEDS ORDERED: HYDROmorphone INJ 0.5 MG/0.5 ML SYR IV PRN (13:59)
[2021-04-02] MEDS ORDERED: traMADol HCL 50 MG TABLET PO PRN (13:59)
[2021-04-02] MEDS: SODIUM CHLORIDE 0.9% 1000ML 1,000 ML IV SCH ×2 (14:00→23:45)
--- NOTE | 2021-04-02 15:42 | Operative Report ---
Post Operative Report Pre & Post Diagnosis Operation Date: 04/02/21 10:40 Pre-Op Diagnosis: Left Knee Advanced Degenerative Joint Disease Post-Op Diagnosis: Left Knee Advanced Degenerative Joint Disease I identified the patient and participated in the time-out.: Yes Procedure Operation Date: 04/02/21 10:40 Actual Procedures p Left Total Knee Arthroplasty(Left) - Romain Yepez MD Surgeon Romain Yepez MD Crystal Growing Technician ZACHERY Cohen Estimated Blood Loss 50 Findings Consistent with Post-Op Diagnosis Specimens Left knee sent for pathology. Anesthesia Type Spinal MAC Complications none Disposition Accompanied Patient To Recovery: No Disposition: Recovery Room Indications Patient is a 71-year-old gentleman who is had a long history of progressive left knee pain discomfort and deformity over time. He has been through extensive conservative treatment the past. He has trouble ambulating then he says related to his knee pain. He failed all conservative measures and elected to proceed with total knee replacement. 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 Description of Procedure Operative implants consist of: 1. Biomet Vanguard size 65 left posterior stabilized femoral component. 2. Biomet size 71 tibial tray. 3. 12 mm posterior stabilized polyethylene insert. 4. 31 x 8 all polypatella. Patient was taken to the operating, identified, placed on the operating table supine position but all contact areas were properly padded. IV antibiotics 5 by anesthesia team. Spinal anesthetic and abductor canal block advised in the holding area. Stout catheter was placed in sterile fashion. Left thigh turn was then placed in the left lower extremities and prepped and draped in usual sterile fashion. Left leg was elevated exsanguinated with use of an Esmarch and turns placed at 300 mmHg. An anterior posterior left knee was then performed to longitudinal incision centered over the patella. Sharp dissection got through subcutaneous this down the extensor mechanism. Medial parapatellar arthrotomy incision was made. Some subperiosteal dissection was carried out medially. I did extensive dissection medially due to the tight medial side as well as is large Green's cyst which we decompressed. The fat pad was resected from beneath patella tendon. The lateral patellofemoral ligament was released. Patella subluxated laterally. The knee was flexed. The osteophytes were taken off distal femur. The ACL and PCL were then released from distal femur the tibia subluxated anteriorly. The external tibial alignment jig was then placed in the interface the tibia and adjusted 16 mm medially. Proximal tibial cut was made essentially flush with the most deficient aspect medial tibial plateau. Some osteophytes were taken off medial and posterior medially. Tibia sized to a size 71. Attention drawn the femur. The distal femur was entered the sharp drop with intramedullary canal was suction. A left 6 degree the distal femoral cutting block was pinned in place. Distal femoral cut was made to take an additional 3 mm of bone off distal femur. The femur was then sized to a size 65. The AP cutting block was pinned parallel to the epicondylar axis which was 6 degrees of external rotation. The anterior cut, anterior chamfer, posterior cut, posterior chamfer cuts were made. The box cutting guide was placed in just slight lateral and the box cut was made. The knee was flexed. The remnants of the medial lateral menisci were excised. The osteophytes were taken off the posterior aspect of the femur. A trial femoral component was placed through the tibial tray was pinned in maximum external rotation and the drill and stem punch used to create defect in proximal tibia for the tibial tray. Knee was then trialed and the 12 mm insert fit most appropriately. Attention drawn the patella. The patella was cleaned of all soft tissues. Patella thickness measured 23 mm in thickness and cut down to 13. It was sized to a size 31 patella. The lug holes were drilled for 31 patella. Lateral osteophyte is moved. Patella button was placed. Knee was taken through range of motion patella tracked nicely with no thumbs test. Attention turned to placing permanent components. All trial components were removed. Bone plug was placed in the distal femur limit blood loss. Double batch [place]os G cement was mixed. A Biomet Vanguard size 65 posterior stabilized femoral component, size 71 tibial tray, 12 mm posterior stabilized polyethylene insert, 31 x 8 all polypatella then cemented in place. The knee was brought out into full extension until cement hardened. Final cement check was then performed. Pericapsular tissues were injected with total 100 cc of combination of 20 cc of Exparel, 30 cc normal saline, 50 cc of quarter percent Marcaine with epinephrine. Patient did receive 1 g tranexamic acid. The tourniquet was then let down for final turn time of 54 minutes. Hemostasis assured use electrocautery. Extensor mechanism closed with combination #1 PDS suture #1 Vicryl suture in [id number] fashion with extensor mechanism checked found to be intact the subcutaneous tissue then closed with 2 Dexon suture buried fashion skin was closed skin quintin. Leg was then cleaned dried a sterile dressing was Xeroform, 4 x 4's, sterile cast padding, Jose bandage were applied. Patient then transferred to the recovery room in stable condition. Patient tolerated procedure well and there were no complications. Venu Cohen, my physician accountant assistant, was present for the entire procedure. His assistance was essential and required for appropriate patient positioning, prepping and draping, surgical exposure, performing the technical details of the operation, placement the implants, closure of the wound, and placement of the sterile bandage. I attest to the content of the Intraoperative Record and any orders documented therein. Any exceptions are noted below.
[2021-04-02] MEDS: ASCORBIC ACID 500 MG TAB PO SCH (17:25)
[2021-04-02] MEDS: ACETAMINOPHEN 500 MG TAB PO SCH (17:26)
[2021-04-02] MEDS: KETOROLAC TROMETHAMINE 15 MG/ML VIAL IV SCH ×2 (17:26→23:44)
[2021-04-02] MEDS ORDERED: TRANEXAMIC ACID / 0.7% NACL 1,000 MG/100 ML BAG IV SCH (19:00)
[2021-04-02] MEDS: ceFAZolin 1000MG 1,000 MG/7.5 ML SYR IV SCH (20:19)
[2021-04-02] MEDS: DOCUSATE SODIUM 100 MG CAP PO SCH (20:19)
[2021-04-02] MEDS: ASPIRIN 81 MG ECTAB PO SCH (20:19)
[2021-04-02] MEDS ORDERED: SENNA 8.6 MG TAB PO SCH (21:00)
[2021-04-03] MEDS: KETOROLAC TROMETHAMINE 15 MG/ML VIAL IV SCH ×2 (05:23→11:03)
[2021-04-03] MEDS: ceFAZolin 1000MG 1,000 MG/7.5 ML SYR IV SCH (05:23)
[2021-04-03] MEDS: ACETAMINOPHEN 500 MG TAB PO SCH (05:23)
[2021-04-03 06:18] LABS: Hematocrit (blood only) 34.3 % (42-52); Mean Corpuscular Hemoglobin 33.6 pg (25-34); Mean Corpuscular Volume 96.1 fL (80-100); Mean Platelet Volume 9.3 fL (7.4-10.4); Platelet Count 212 K/uL (130-400); RDW Coefficient of Variation 13.8 % (11.5-14.5); RDW Standard Deviation 49.1 fL (36.4-46.3); Red Blood Count 3.57 M/uL (4.7-6.1)
[2021-04-03 06:47] LABS: BUN Creatinine Ratio 21.2 (10-20); Calcium 8.7 mg/dl (8.5-10.1); Est GFR (African American) 110.7 ml/min; Est GFR (Non-African American) 95.5 ml/min; Potassium 3.9 mmol/L (3.5-5.1)
--- NOTE | 2021-04-03 07:37 | Orthopedic Progress Note ---
Date of Service April 03, 2021 Assessment & Plan (1) Status post total left knee replacement: Pain well controlled. PT/OT dvt prophylaxis discharge planning: possibly home with home health today depending how he does with PT. Subjective . 71 year old POD #1 from left tka. He's doing well. Not really having any pain. No chest pain. no other complaints. Review of Systems All systems reviewed & are unremarkable except as noted in HPI & below. Physical Exam . alert and oriented. NAD. He was sleeping when I initially came in. left leg: dressing intact. able to do straight leg raise. NVI. He can dorsiflex and plantarflex but does seem to lack some dorsiflexion. he said this is how his leg always is. Results & Data Results & Data Laboratory Results . Diagnostic Findings . PG Care Time/CCT Total # of Minutes Spent Total Time Spent with Patient: Total time spent is greater than 50% in coordination of care (as documented) at patient's floor/unit and/or counseling patient: Coding Level of Care Code 47410 Post Operative Follow-Up Diagnoses Status post total left knee replacement Z96.652
[2021-04-03] MEDS ORDERED: dexAMETHasone 10 MG in SYRINGE 0 ML IV SCH (08:00)
[2021-04-03] MEDS: ASCORBIC ACID 500 MG TAB PO SCH (08:31)
[2021-04-03] MEDS: DOCUSATE SODIUM 100 MG CAP PO SCH (08:31)
[2021-04-03] MEDS: ASPIRIN 81 MG ECTAB PO SCH (08:31)
[2021-04-03] MEDS ORDERED: OMEGA-3 (PURIFIED FISH OIL) 1 GM CAP PO SCH (09:00)
[2021-04-03] MEDS ORDERED: MULTIVITAMIN TAB PO SCH ×2 (09:00)
--- NOTE | 2021-04-03 09:22 | Anesthesiology Progress Note ---
Date of Service April 03, 2021 Anesthesia Post Procedure Vital Signs Vital Signs: Temp Pulse Pulse Resp BP Pulse Ox 04/03/21 07:00 36.8 C 56 L 18 122/63 96 04/03/21 03:15 36.8 C 53 L 16 122/73 95 04/03/21 00:04 36.8 C 58 L 16 130/76 95 04/02/21 19:30 36.4 C L 56 L 18 150/82 H 98 04/02/21 17:00 36.6 C 60 18 149/85 H 97 04/02/21 16:00 36.5 C 52 L 16 143/77 H 98 04/02/21 15:06 36.5 C 56 L 16 131/77 97 04/02/21 14:33 36.4 C L 57 L 16 121/79 04/02/21 13:59 36.4 C L 64 16 127/78 95 04/02/21 13:50 36.4 C L 61 16 107/69 96 04/02/21 13:35 71 16 109/71 95 04/02/21 13:20 64 16 113/71 95 04/02/21 13:05 36.6 C 77 16 108/68 95 04/02/21 12:55 76 14 111/65 95 04/02/21 12:46 36.7 C 89 14 109/64 96 Pain Intensity Left Knee: Pain Intensity: 2 Notes Mental Status: alert / awake / arousable and participated in evaluation Patient Amnestic to Procedure: Yes Nausea / Vomiting: adequately controlled Pain: adequately controlled Airway Patency, RR, SpO2: stable & adequate BP & HR: stable & adequate Hydration State: stable & adequate Neuraxial Anesthesia: was administered and sensory block resolved Anesthetic Complications: no major complications apparent
--- NOTE | 2021-04-06 07:40 | Discharge Summary ---
Date of Service April 06, 2021 Discharge Data Procedures Performed Operation Date: 04/02/21 10:40 Actual Procedures p Left Total Knee Arthroplasty(Left) - Romain Yepez MD Hospital Course (1) Status post total left knee replacement: This patient is a 71 year old admitted on and underwent total knee arthroplasty. He tolerated the procedure well and there were no complications. Transferred to the PACU post op and later to the orthopedic floor for further care. He was given ancef for antibiotic prophylaxis. He was also given ANGELA stockings, SCDs, and aspirin for DVT prophylaxis. Hemoglobin, hematocrit, and vital signs were monitored during his hospital stay and remained stable. Did not require any blood transfusions. There were no complications during his hospital stay. By post op day #1 the patient was tolerating a regular diet, pain was reasonably controlled with oral pain medicine, and he was participating in physical therapy. On post op day #1 the patient was discharged home. He was given printed discharge instructions including prescriptions for extra strength tylenol, aspirin, and tramadol. Continue physical therapy, weight bearing as tolerated. Continue ANGELA stockings. Follow up approximately 2 weeks post op or sooner if there are problems or concerns. Coding Level of Care Code None Diagnoses Status post total left knee replacement Z96.652
== END 2021-04-03 12:16 | disposition home or self-care (01) ==
LOC: 3E 08:26 → ASU 08:26
DX: M17.12 Unilateral primary osteoarthritis, left knee